=== PATIENT | male | born 1960 | race Caucasian/White ===

== ENCOUNTER 2019-04-26 10:16 | Emergency (ER) | payer OTHER, SELFPAY ==
[~2019-04-26 10:16] MED LIST: Sodium Chloride 0.9% 1,000 ML BAG ONE
[2019-04-26] MEDS ORDERED: Sodium Chloride 0.9% 1,000 ML BAG ONE (10:54)
[2019-04-26 11:02] LABS: #Basophils 0.1 thou/uL (0.0-0.2); #Lymphocytes 1.8 thou/uL (1.20-3.40); #Monocytes 1.1 thou/uL (0.11-0.59); #Neutrophils 7.2 thou/uL (1.40-6.50); %Basophils 1.5 % (0.0-1.0); %Eosinophils 0.4 % (0.0-10.0); %Lymphocytes 17.4 % (21.0-51.0); %Monocytes 10.4 % (0.0-10.0); %Neutrophils 70.4 % (42.0-75.0); Hemoglobin 15.5 g/dL (14.0-18.0); Mean Corpuscular HGB CONC 33.8 g/dL (32.0-36.0); Mean Corpuscular Hemoglobin 31.4 pg (27.0-31.0); Platelet Count 254 thou/uL (130-400); Red Blood Cell (RBC) Count 4.94 mill/uL (4.70-6.10); White Blood Cell (WBC) Count 10.3 thou/uL (4.8-10.8)
[2019-04-26 11:12] LABS: ALT (SGPT) 70 U/L (8-55); AST (SGOT) 74 U/L (5-34); Albumin 4.4 g/dL (3.5-5.0); Alkaline Phosphatase 53 U/L (40-150); Anion Gap 22 mmol/L (10-20); BUN (Urea Nitrogen) 71 mg/dL (8.4-25.7); Bilirubin, Total 0.7 mg/dL (0.2-1.2); CK (CPK) 798 U/L (30-200); Calc. Creatinine Clearance 0 mL/min (70-130); Carbon Dioxide 28 mmol/L (22-29); Chloride 86 mmol/L (98-107); Estimated GFR-MDRD 8; Globulin 3.3 g/dL (2.4-3.5); Glucose 106 mg/dL (70-105); Lipase 79 U/L (8-78); Potassium 3.8 mmol/L (3.5-5.1); Protein, Total 7.7 g/dL (6.0-8.3); Sodium 132 mmol/L (136-145)
[2019-04-26 11:16] LABS: Calcium 14.3 mg/dL (7.8-10.44)
[2019-04-26] MEDS ORDERED: Thiamine HCl 200 MG/2 ML VIAL ONE (11:21)
[2019-04-26] MEDS ORDERED: Dextrose 5 %-0.45 % NaCl 1,000 ML ONE (11:21)
[2019-04-26] MEDS ORDERED: Multivit, Adult Inj 10 ML VIAL ONE (11:21)
[2019-04-26 11:49] LABS: Phosphorus 5.2 mg/dL (2.3-4.7)
[2019-04-26 11:52] LABS: Acetaminophen Less than 6.0 mcg/mL (10.0-30.0); Alcohol Less than 10 mg/dL (Less than 10); Magnesium 1.7 mg/dL (1.6-2.6); Salicylate Less than 8.0 mg/dL (15.0-30.0)
[2019-04-26 11:56] LABS: Base Excess-Venous 2.4 mmol/L (-2.0 to 3.0); Bicarbonate (HCO3v) 27.9 mmol/L (22.0-28.0); CO2 Tension (PvCO2) 45.2 mmHg (40.0-50.0); Chloride 93 mmol/L (98-107); Hemoglobin - Calc 14.6 g/dL (14.0-18.0); Potassium 3.6 mmol/L (3.5-5.1); Sodium 130 mmol/L (138-145); T. Carbon Dioxide 29.3 mmol/L (22.0-28.0); vO2 Saturation-calc 33.4 % (60.0-85.0)
== END 2019-04-26 13:50 | disposition short-term general hospital (02) ==
LOC: MADERS 10:16
DX: N17.9 Acute kidney failure, unspecified (principal); T67.5XXA Heat exhaustion, unspecified, initial encounter; I10 Essential (primary) hypertension; F17.220 Nicotine dependence, chewing tobacco, uncomplicated; Z79.82 Long term (current) use of aspirin; Z79.899 Other long term (current) drug therapy; X30.XXXA Exposure to excessive natural heat, initial encounter
CPT/HCPCS: 80307; 82330; 82550; 82803; 83605; 83690; 83735; 84100; 84484; 85025; 93005; 96361; 96365; 96366; 96375; J3411; J7042; J7050